=== PATIENT | male | born 1960 | race Caucasian/White ===

== ENCOUNTER 2017-01-31 13:03 | Observation (INO) ==
[2017-01-31] MEDS ORDERED: MORPHINE SULFATE 4 MG/1 ML IVP ONE ×2 (13:14→16:18)
[2017-01-31] MEDS ORDERED: KETOROLAC 15 MG/1 ML VIAL IVP ONE (13:14)
[2017-01-31] MEDS ORDERED: ONDANSETRON 4 MG/2 ML VIAL IVP ONE (13:14)
[2017-01-31] MEDS ORDERED: NORMAL SALINE 10 ML SYRINGE FLUSH IVP PRN (13:14)
[2017-01-31] MEDS ORDERED: Sodium Chloride 0.9% 1,000 ML PRIMARY IV ONE (13:14)
[2017-01-31] MEDS ORDERED: LORazepam 2 MG/1 ML VIAL IVP ONE (13:16)
--- NOTE | 2017-01-31 13:21 | PDOC ---
Back Pain / Injury HPI - General Chief Complaint: Neck / Back Complaint Stated Complaint: back pain Date Seen by Provider: 01/31/17 Time Seen by Provider: 13:10 Source: Patient, Spouse, EMS Exam Limitations: POSITIVE: No limitations Nurse's Notes Reviewed & Considered: Yes EMS Report Reviewed & Considered: Verbal - History of Present Illness Initial Comments: The patient is a 56-year-old male who is brought to the emergency department by ambulance with severe low back pain radiating down his left leg. He has been having issues with sciatic back pain with radiation down his left leg for a while now. He actually had an MRI of his lower back last week which she has not received the results of. Today he was using a small jackhammer when he had onset of more severe pain to the point where he cannot move. EMS was subsequently called and transported him here to the emergency room. He states the pain is in his lower back and radiates primarily down his left leg. He had taken some Aleve earlier today. He denies any allergies to any medications. He also does have a history of MS. - Patient Home Medications Home Medications: Home Medications Teriflunomide [Aubagio] 14 mg PO DAILY tab 07/04/15 Baclofen 10 mg PO BID #60 tab 09/11/16 Oxybutynin Chloride 5 mg PO TID #90 tab 09/11/16 Diltiazem HCl [Diltiazem 24hr Er] 120 mg PO QD #30 cap 10/03/16 Tamsulosin HCl 1 cap PO DAILY #30 cap 10/03/16 Cyclobenzaprine HCl [Flexeril] 10 mg PO TID PRN #20 tab 01/31/17 Oxycodone HCl/Acetaminophen [Percocet 7.5-325 Mg Tablet] 1 ea PO Q6H PRN #20 tab 01/31/17 - Patient Allergies Allergies/Adverse Reactions: Allergies 3 Allergy/AdvReac Type Severity Reaction Status Date / Time POLYMIXIN Allergy Mild SWELLING Uncoded 01/31/17 13:12 Past Medical History - heen HEENT History: Denies History Cardiovascular History: Hypertension, Arrhythmia Additional Cardiovasular History: TACHYCARDIA, HAD STRESS TEST DONE 04/13/14 Respiratory History: Denies History Gastrointestinal History: Denies History Additional Gastrointestinal History: REPAIRED HERNIA/ NOT HIATAL Genitourinary History: Denies History Additional Genitourinary History: PROSTATES ISSUES Endocrine History: Denies History Musculoskeletal History: Other (please comment) Prosthesis or Implant: No Additional Musculoskeletal History: MS Neurological History: Multiple Sclerosis Additional Neurological History: FELL ON 09/11/14 AT WORK, HAS RETROGRADE AMNESIA. CASE REVIEWED BY [facility] HEADACHES- SEEING DR. GARRISON Blood Disorders: Denies History Psychiatric History: Denies History History of Sexually Transmitted Diseases: No Cancer History: Denies History History of MDRO: No History of Other Communicable Diseases: No Alcohol Use: Rarely In the Past 12 Months, Have Used or Abuse Any Substance: None Previous Surgical History: Yes Type / Date of Surgery: HERNIA REPAIR, TONSILLECTOMY/ RIGHT KNEE SCOPE Anesthesia Reactions: No Malignant Hyperthermia: No Significant Family History: Cancer, Other (please comment) Additional Family History: PARKINSONS Past Medical History Reviewed: Reviewed - No Changes ROS - Limitations ROS Limitations: No Limitations Constitution: DENIES: Chills, Fever Cardiovascular: REPORTS: Denies Cardiac Symptoms Respiratory: REPORTS: Denies Resp Symptoms Neurological: DENIES: Headache Gastrointestinal: DENIES: Abdominal Pain Back Physical Assessment - General Appearance General Appearance: REPORTS: Other (The patient is lying on his right side and appears to be having significant pain. He is awake and answers questions appropriately otherwise.) - HEENT HEENT: POSITIVE: Head Inspection Nml - Neck Neck: POSITIVE: Painless ROM, Trachea Midline - Respiratory / CVS Respiratory / CVS: POSITIVE: Breath Sounds Normal, No Respiratory Distress, Heart Sounds Normal, Regular Rate/Rhythm - Abdomen Abdomen: Soft: (All Quadrants), Normal Bowel Sounds: (All Quadrants), No Distention: (All Quadrants) - Back Back: REPORTS: Vertebral Pt. Tenderness (Or lumbar tenderness) - Skin Skin: REPORTS: Intact, No Rash - Extremities Extremity Assessment: No Edema: (ALL) Peripheral Pulses: Dorsalis-pedis (R): 2+, Dorsalis-pedis (L): 2+ Back Progress - Results Reviewed by me Xrays/CTs/US Reviewed: Yes Discussed with Radiologist: Yes Radiology Findings: CT scan of the lumbar spine reveals degenerative changes with spondylolisthesis at the L4-5 level, disc space narrowing is significant at the L5-S1 level, multiple levels of bulging discs per radiologist, no acute fracture CBC and BMP: 01/31/17 13:39 01/31/17 13:39 - Patient's Progress MDM / ED Course: The patient was having significant pain on arrival. An IV had been established per EMS and the patient did receive morphine 4 mg IV, Zofran 4 mg IV and Ativan 1 mg IV. His pain improved initially while the patient was lying in bed. Lab work is all essentially unremarkable and urinalysis is normal. CT scan of lumbar spine reveal significant degenerative changes with bulging discs, as one L5 disc space narrowing and spondylolisthesis with likely nerve impingement per radiologist. The patient's symptoms are consistent with worsening lumbar radiculopathy. He did have an MRI in [place] just last week and is awaiting results. Initially the plan was for discharge home. However is a patient was attempting to get dressed and sit in a chair was apparent that he was going to be unable to do this and his pain returned. He did not feel that he could function properly at home given this level of pain. Decision was made to admit for further pain control. Dr. Ramirez has agreed to accept the patient for further treatment. - Consult Counseled: POSITIVE: Patient, Family, RE: Lab Results, RE: Radiology Results, RE : DX, RE: Need for F/U Patient Care Time - Estimated PCT Patient Care Time (In Minutes): 45 Vital Signs - Recent Vital Signs Vital Signs: Vital Signs (Last 8 hours) Temp Pulse Resp BP Pulse Ox 01/31/17 14:40 97.7 F 87 14 144/92 98 01/31/17 13:14 98 F 68 18 142/83 95 - VS Reviewed Vital Signs Reviewed: Yes Discharge Clinical Impression: Lumbar radiculopathy, Degenerative disc disease Discharge Disposition: Admit to Observation Condition: Fair
[2017-01-31 13:42] LABS: BASOPHILS # (AUTO) 0.29 10*3/UL; BASOPHILS % (AUTO) 3.6 % (0-1); EOSINOPHILS # (AUTO) 0.41 10*3/UL; EOSINOPHILS % (AUTO) 5.1 % (0-8); Hematocrit [HCT] 43.4 % (42.0-52.0); Hemoglobin [HGB] 15.4 g/dL (14.0-18.0); LYMPHOCYTES # (AUTO) 2.06 10*3/uL; MEAN CORPUSCULAR HEMOGLOBIN 29.3 PG (27-31); MEAN CORPUSCULAR HGB CONC 35.5 g/dL (33-37); MEAN CORPUSCULAR VOLUME 82.7 FL (80-90); MEAN PLATELET VOLUME 9.8 FL (7.4-12.2); MONOCYTES # (AUTO) 0.89 10*3/UL (0.3-0.8); MONOCYTES % (AUTO) 11.1 % (5-15); NEUTROPHILS # (AUTO) 4.33 10*3/UL; NEUTROPHILS % (AUTO) 54.3 % (50-80); RED BLOOD COUNT 5.25 10^6/uL (4.70-6.10)
[2017-01-31 13:51] LABS: PLATELET MORPHOLOGY COMMENT NORMAL MORPHOLOGY (NORM); RBC MORPHOLOGY COMMENT NORMAL MORPHOLOGY (NORM); WBC MORPHOLOGY COMMENT NORMAL MORPHOLOGY (NORM)
[2017-01-31 13:59] LABS: BLOOD UREA NITROGEN 16 mg/dL (7-22); SERUM ALBUMIN 4.2 g/dL (3.5-4.8)
[2017-01-31 14:12] LABS: BILIRUBIN,URINE NEGATIVE (NEG); CLARITY,URINE CLEAR (CLEAR); COLOR,URINE YELLOW (Y); GLUCOSE, URINE (UA) NEGATIVE (NEG); NITRATE,URINE NEGATIVE (NEG); OCCULT BLOOD,URINE NEGATIVE (NEG); PH,URINE 7.5 (5.0-8.5); PROTEIN,URINE NEGATIVE (NEG); URINE SAMPLE TYPE CLEAN CATCH URINE; UROBILINOGEN,URINE 0.2 EU/dL (0.2)
--- NOTE | 2017-01-31 14:39 | DI ---
CLINICAL HISTORY: Back and left leg pain after using a jackhammer. PREVIOUS EXAM: None available. FINDINGS/TECHNIQUE: Multiple helically acquired CT images are obtained through the lumbar spine witho ut contrast, and demonstrate grade 1 anterolisthesis of L4 on L5. There is broad-based disc bulges at L2/3, L3/4 and L4/5. There is mild facet hypertrophy noted. There is moderate to severe There is near-complete loss of intervertebral disc height at L5/S1. Bilateral neural foraminal narrow ing at L4/5 and L5/S1. IMPRESSION: 1. Degenerative changes throughout the lumbar spine. Recommend followup imaging with MRI for further evaluation. There is significant neuroforaminal narrowing of the lower lumbar spine.
[2017-01-31] MEDS ORDERED: oxyCODONE-ACETAMINOPHEN 5-325 TAB PO ONE (15:37)
[2017-01-31] MEDS: NORMAL SALINE 10 ML SYRINGE FLUSH IVP PRN ×3 (16:20→17:24)
[2017-01-31] MEDS ORDERED: HYDROmorphone 2 MG/1 ML IVP PRN ×2 (16:37→17:09)
[2017-01-31] MEDS ORDERED: ONDANSETRON 4 MG/2 ML VIAL IVP PRN (16:37)
[2017-01-31] MEDS ORDERED: oxyCODONE-ACETAMINOPHEN 5-325 TAB PO PRN (16:37)
[2017-01-31] MEDS ORDERED: LIDOCAINE W/ SODIUM BICARB 0.5 ML SYR SUBD PRN (16:37)
[2017-01-31] MEDS ORDERED: ACETAMINOPHEN 325 MG TABLET PO PRN (16:37)
[2017-01-31] MEDS ORDERED: KETOROLAC 15 MG/1 ML VIAL IVP PRN (16:37)
[2017-01-31] MEDS ORDERED: CALCIUM CARBONATE 500 MG (TUMS) CHEWABLE TABLET PO PRN (16:37)
[2017-01-31] MEDS ORDERED: DIAZEPAM 5 MG TABLET PO PRN (17:10)
[2017-01-31] MEDS: BACLOFEN 20 MG TABLET PO SCH (17:24)
--- NOTE | 2017-01-31 18:38 | PDOC ---
HPI - History of Present Illness Date and Time of Service: 01/31/2017, 1835 Chief Complaint: Back pain History of Present Illness: This very pleasant 56-year-old male who suffers from hypertension and multiple sclerosis and some bladder dysfunction from the multiple sclerosis presumably. He comes in accompanied by his this early evening with complaints of back pain. The pain is been radiating down the left leg and is been present for at least a month if not a little longer. The pain really got bad after doing some work in which she was climbing on a ladder. He states that makes his pain much worse. He gets sharp pain down the left leg. He denies any fevers, stool incontinence, they stated it was difficult to hold his urine back today. He states that significantly improved and completely resolved. His states that he has some mild foot drop from his multiple sclerosis. That has not changed. He saw chiropractor, but adjustments really did not seem to help and ease been seeing Dr. Torres here in town who ordered an MRI last week. The MRI results are not back yet but a CT scan done in the emergency room shows disc bulging and severe neural foraminal narrowing in the lower lumbar spine. We are requesting the MRI scan report to review further. He has not seen a back surgeon at this point. Patient has had several pain medications and anxiolytics or muscle relaxants including Valium, Toradol, Dilaudid, and I will also place him on a Medrol Dosepak. The patient states that his pain is much better, but still persistent. He has been mildly hypoxic with these medications and is required oxygen. 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 That seemed to aggravate his pain as well. Past Medical History Medical History: 1. Hypertension. 2. Multiple sclerosis. 3. 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 Rotator cuff repair. 2. Biceps tendon repair. 3. Tonsillectomy. 4. Pertinent Family History: Significant for Parkinson's in his mother who is . Father has COPD and is alive. Past Social History: Does not smoke or drink. . Has 3 healthy children although his middle daughter apparently has mild multiple sclerosis. 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 Tobacco Use: Never Smoker In the Past 12 Months, Have Used or Abuse Any of the Following Substance: None Alcohol Use: None Medication / Allergies Home Medications: Home Medications Medication Instructions Recorded Confirmed Type Teriflunomide [Aubagio] 14 mg PO DAILY tab 07/04/15 01/31/17 History Baclofen 10 mg PO BID #60 tab 09/11/16 01/31/17 Rx Oxybutynin Chloride 5 mg PO TID #90 tab 09/11/16 01/31/17 Rx Diltiazem HCl [Diltiazem 24hr Er] 120 mg PO QD #30 cap 10/03/16 01/31/17 Rx Tamsulosin HCl 1 cap PO DAILY #30 cap 10/03/16 01/31/17 Rx Cyclobenzaprine HCl [Flexeril] 10 mg PO TID PRN #20 tab 01/31/17 Rx Oxycodone HCl/Acetaminophen 1 ea PO Q6H PRN #20 tab 01/31/17 Rx [Percocet 7.5-325 Mg Tablet] Allergies/Adverse Reactions: Allergies 3 Allergy/AdvReac Type Severity Reaction Status Date / Time POLYMIXIN Allergy Mild SWELLING Uncoded 01/31/17 13:12 Review of Systems - Review of Systems All Systems: Reviewed & No Additional Complaints Except as Stated (I did a 12 point review systems and it is negative other than that discussed in history present illness and that noted below.) - Cardiovascular Cardiovascular: REPORTS: Other (History of tachycardia but resolved) Exam - Vitals Vital Signs: Vital Signs Pulse Rate [Pulse Oximeter] 87 Respiratory Rate 14 Oxygen Flow Rate 2 Oxygen Delivery Method Nasal Cannula Height 5 ft 9 in Weight 180 lb Vital Signs - Last Taken Temperature 97.7 F 01/31/17 14:40 Pulse Rate 87 01/31/17 16:42 Respiratory Rate 14 01/31/17 16:42 Blood Pressure 144/92 01/31/17 14:40 Pulse Ox 98 01/31/17 14:40 - General General Appearance: No Acute Distress, Cooperative - Head Head Exam: Normal Inspection, Normocephalic, Atraumatic - Eye Eye Exam: POSITIVE: No Scleral Icterus - ENT ENT Exam: POSITIVE: Mucous Membranes Moist - Neck Neck Exam: Normal Inspection, No Tenderness, Thyromegaly - Respiratory Respiratory Exam: POSITIVE: Clear to Auscultation - Bilaterally, Breathing Non Labored, Normal to Percussion and Palpation - Cardiovascular Cardiovascular Exam: POSITIVE: RRR, No Murmur, No Clicks, No Gallops, No Rubs, No JVD - GI/Abdominal GI/Abdominal Exam: POSITIVE: Normal Bowel Sounds, Non Tender, Non Distended, Soft - Rectal Rectal Exam: POSITIVE: Deferred - External Exam: POSITIVE: Deferred Exam: POSITIVE: Deferred - Extremities Extremities Exam: POSITIVE: No Clubbing Present, No Edema Present, No Cyanosis Present - Back Back Exam: POSITIVE: Normal Inspection, No CVA Tenderness, Paraspinal Tenderness (In the lower lumbar spine.), Vertebral Tenderness (In the lower lumbar spine.) - Neurological Neurological Exam: POSITIVE: Alert, Oriented x 3, No Facial Droop, Speech Intact / Clear, Moves All Extremities Equally Additional Neurological Exam Details: Achilles reflexes and knee reflexes in the lower extremities were equal bilaterally no hyperreflexia noted - Psychiatric Psychiatric Exam: POSITIVE: Normal Affect, Normal Mood Results - Labs CBC and BMP: 01/31/17 13:39 01/31/17 13:39 Additional Lab Results: Laboratory Results 01/31/17 01/31/17 01/31/17 Range/Units 13:22 13:39 13:39 WBC 7.99 (4.8-10.8) 10^3/uL RBC 5.25 (4.70-6.10) 10^6/uL Hgb 15.4 (14.0-18.0) g/dL Hct 43.4 (42.0-52.0) % MCV 82.7 (80-90) FL MCH 29.3 (27-31) PG MCHC 35.5 (33-37) g/dL RDW Std Deviation 40.9 (39-50) fL RDW Coeff of Anju 13.7 (11.5-14.5) % Plt Count 275 (140-350) 10*3/uL MPV 9.8 (7.4-12.2) FL Immature Gran % (Auto) 0.1 (0-5) % Neut % (Auto) 54.3 (50-80) % Lymph % (Auto) 25.8 (10-50) % [place] % (Auto) 11.1 (5-15) % Eos % (Auto) 5.1 (0-8) % Baso % (Auto) 3.6 H (0-1) % Immature Gran # (Auto) 0.01 10*3/UL Neut # (Auto) 4.33 10*3/UL Lymph # (Auto) 2.06 10*3/uL [place] # (Auto) 0.89 H (0.3-0.8) 10*3/UL Eos # (Auto) 0.41 10*3/UL Baso # (Auto) 0.29 10*3/UL WBC Morphology Comment Normal morphology (NORM) Plt Morphology Comment Normal morphology (NORM) RBC Morph Comment Normal morphology (NORM) Sodium 138 (135-145) meq/L Potassium 3.4 L (3.8-5.2) meq/L Chloride 102 (98-112) meq/L Carbon Dioxide 23 (23-33) meq/L Anion Gap 13 (5-20) BUN 16 (7-22) mg/dL Creatinine 1.0 (0.70-1.50) mg/dL Estimated GFR > 60 (>60 ml/min/1.73m(2)) BUN/Creatinine Ratio 16.00 (6-20) Glucose 142 H (78-110) mg/dL Calculated Osmolality 288.0 (267-292) mOsm/kg Calcium 9.7 (8.7-10.7) mg/dL Total Bilirubin 0.8 (0.3-1.2) mg/dL AST 29 (21-57) IU/L ALT 37 (21-72) IU/L Alkaline Phosphatase 49 (38-126) IU/L C-Reactive Protein < 0.5 (0.0-0.9) mg/dL Total Protein 6.9 (6.1-8.0) g/dL Albumin 4.2 (3.5-4.8) g/dL Globulin 2.7 (2.50-4.10) g/dL Albumin/Globulin Ratio 1.50 (1.3-2.0) mg/g Ur Collection Type Clean catch urine Urine Color Yellow (Y) Urine Clarity Clear (CLEAR) Urine pH 7.5 (5.0-8.5) Ur Specific [place] 1.015 (1.005-1.030) Urine Protein Negative (NEG) mg/dl Urine Glucose (UA) Negative (NEG) mg/dL Urine Ketones Negative (NEG) Urine Occult Blood Negative (NEG) Urine Nitrate Negative (NEG) Urine Bilirubin Negative (NEG) Urine Urobilinogen 0.2 (0.2) EU/dL Ur Leukocyte Esterase Negative (NEG) Ur Culture Indicated? Culture not set - Imaging Status: Report Reviewed by Me (I reviewed the CT scan report and it showed some disc bulging and severe neural foraminal narrowing in the lower lumbar spine.) Assessment and Plan - Patient Problems (1) Lumbar radiculopathy Current Visit: Yes Status: Acute Code(s): M54.16 - Radiculopathy, lumbar region (2) Multiple sclerosis Current Visit: Yes Status: Acute Code(s): G35 - Multiple sclerosis (3) Hypertension Current Visit: Yes Status: Acute Code(s): I10 - Essential (primary) hypertension Qualifiers: Hypertension type: essential hypertension Qualified Code(s): I10 - Essential (primary) hypertension (4) Degenerative disc disease Current Visit: Yes Status: Acute Qualifiers: Spinal region: lumbar Qualified Code(s): M51.36 - Other intervertebral disc degeneration, lumbar region - Assessment / Plan Additional Assessment/Plan Details: Admit the patient for observation. IV or parenteral pain control, antiemetics as necessary, steroids, muscle relaxants and anxiolytics that service muscle relaxants as well, and try to get MRI report from [place] outpatient radiology. Ultimately, I think if we can get this pain paroxysmal, down, we should get the patient to a back surgeon either neurosurgeon or orthopedics, for further evaluation and management. If any bowel or bladder dysfunction occurs while here, I will look at transferring the patient acutely to a center with a neurosurgeon. We will continue him home medications for multiple sclerosis and hypertension. Also for bladder dysfunction. I discussed the above plan with the patient and his and they agreed.
[2017-01-31] MEDS ORDERED: POTASSIUM CHLORIDE 20 MEQ TAB PO ONE (18:44)
[2017-01-31] MEDS: Sodium Chloride 0.9% 1,000 ML IV SCH (20:00)
[2017-01-31] MEDS: oxyCODONE-ACETAMINOPHEN 5-325 TAB PO PRN (20:08)
[2017-01-31] MEDS: OXYBUTYNIN 5 MG PO SCH (20:52)
[2017-01-31] MEDS ORDERED: BACLOFEN 20 MG TABLET PO SCH (21:00)
[2017-02-01 05:08] LABS: BLOOD UREA NITROGEN 16 mg/dL (7-22); BUN/CREATININE RATIO 17.77 (6-20)
[2017-02-01] MEDS: oxyCODONE-ACETAMINOPHEN 5-325 TAB PO PRN ×2 (05:20→09:20)
[2017-02-01] MEDS: OXYBUTYNIN 5 MG PO SCH ×2 (08:30→14:41)
[2017-02-01] MEDS: BACLOFEN 20 MG TABLET PO SCH (08:31)
[2017-02-01] MEDS: Sodium Chloride 0.9% 1,000 ML IV SCH (08:42)
[2017-02-01 09:00] VITALS: RESP 20
[2017-02-01] MEDS ORDERED: METHYLPREDNISOLONE 4 MG TAB DOSE PACK PO SCH (09:00)
[2017-02-01] MEDS ORDERED: TAMSULOSIN 0.4 MG CAPSULE PO SCH (09:00)
[2017-02-01] MEDS ORDERED: DILTIAZEM HCL CD 120 MG CAP PO SCH ×2 (09:00→19:00)
[2017-02-01] MEDS ORDERED: METHYLPREDNISOLONE 4 MG TAB DOSE PACK PO ONE (09:13)
[2017-02-01] MEDS ORDERED: Naproxen Tab 500 MG TAB PO ONE (12:14)
[2017-02-01] MEDS ORDERED: Naproxen Tab 500 MG TAB PO SCH (17:00)
[2017-02-01 17:12] VITALS: BP 145/77; TEMP 97.4
--- NOTE | 2017-02-01 18:04 | DCSUMMARY ---
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 He's had some back pain is been persistent and worsening over the last month, associated with sharp, radiating pain down his left leg. It is consistent with sciatica and he had a CT scan here that showed disc bulging and neural foraminal narrowing in the lower lumbar spine. The patient was admitted, managed under observation, given IV pain medications including Dilaudid and Toradol, and we were able to transition him over to by mouth medications including opiates, Naprosyn, and Medrol Dosepak. Valium was also used as a muscle relaxant. Today, the patient is significantly better, states his pain is under much better control, was able to walk around the [place] without difficulties without assistance, no chest pain, no shortness breath, no nausea or vomiting. He would like to go home. Assessment and Plan: 1. As per discharge assessments noted 2. Disposition: Patient is discharged home. 3. Condition on discharge, stable and improved. 4. Diet: regular diet 5. Activities: resume normal activities, but do not lift anything greater than 10 pounds, please avoid extraneous activity. Walking is okay. 6. Follow-Up: 1. See primary care provider in one week 2. See orthopedics, Dr. Torres, this week as scheduled 7. Medications at the Time of Discharge: Home Medications Medication Instructions Recorded Confirmed Type Teriflunomide [Aubagio] 14 mg PO DAILY tab 07/04/15 01/31/17 History Baclofen 10 mg PO BID #60 tab 09/11/16 01/31/17 Rx Oxybutynin Chloride 5 mg PO TID #90 tab 09/11/16 01/31/17 Rx Diltiazem HCl [Diltiazem 24Hr ER] 120 mg PO QD #30 cap 10/03/16 01/31/17 Rx Tamsulosin HCl 1 cap PO DAILY #30 cap 10/03/16 01/31/17 Rx Naproxen [Naprosyn] 500 mg PO BID MEALS #30 tab 02/01/17 Rx methylPREDNISolone Dose Pack 24 mg PO DAILY sara 02/01/17 Rx [Medrol Dose Pack] oxyCODONE/APAP 5/325 Tab 1 - 2 tab PO Q4H PRN #30 tab 02/01/17 Rx [Percocet 5/325 Tab] 8. Time, care, counseling and coordination of care for this discharge is greater than 30 minutes. Exam - Vitals Vital Signs: Vital Signs Vital Signs (24 hrs) Temp Pulse Resp BP Pulse Ox 02/01/17 17:00 97.4 F 96 20 145/77 94 02/01/17 13:00 98.1 F 85 20 138/91 94 02/01/17 08:59 98.2 F 84 20 154/93 96 02/01/17 04:29 98 F 89 16 151/91 95 02/01/17 01:00 97.9 F 94 16 152/91 97 01/31/17 20:36 98.4 F 97 16 134/92 96 Height 5 ft 9 in Weight 175 lb 6.4 oz - General General Appearance: No Acute Distress, Cooperative - Eye Eye Exam: POSITIVE: No Scleral Icterus - ENT ENT Exam: POSITIVE: Mucous Membranes Moist - Respiratory Respiratory Exam: POSITIVE: Clear to Auscultation - Bilaterally, Breathing Non Labored - Cardiovascular Cardiovascular Exam: POSITIVE: RRR, No Murmur, No Clicks, No Gallops, No Rubs, No JVD - GI/Abdominal GI/Abdominal Exam: POSITIVE: Normal Bowel Sounds, Non Tender, Non Distended, Soft - Extremities Extremities Exam: POSITIVE: No Clubbing Present, No Edema Present, No Cyanosis Present - Neurological Neurological Exam: POSITIVE: Alert, Oriented x 3, Normal Gait, No Facial Droop, Speech Intact / Clear, Moves All Extremities Equally Data Perinent Studies: Laboratory Results 01/31/17 01/31/17 01/31/17 Range/Units 13:22 13:39 13:39 WBC 7.99 (4.8-10.8) 10^3/uL RBC 5.25 (4.70-6.10) 10^6/uL Hgb 15.4 (14.0-18.0) g/dL Hct 43.4 (42.0-52.0) % MCV 82.7 (80-90) FL MCH 29.3 (27-31) PG MCHC 35.5 (33-37) g/dL RDW Std Deviation 40.9 (39-50) fL RDW Coeff of Anju 13.7 (11.5-14.5) % Plt Count 275 (140-350) 10*3/uL MPV 9.8 (7.4-12.2) FL Immature Gran % (Auto) 0.1 (0-5) % Neut % (Auto) 54.3 (50-80) % Lymph % (Auto) 25.8 (10-50) % [place] % (Auto) 11.1 (5-15) % Eos % (Auto) 5.1 (0-8) % Baso % (Auto) 3.6 H (0-1) % Immature Gran # (Auto) 0.01 10*3/UL Neut # (Auto) 4.33 10*3/UL Lymph # (Auto) 2.06 10*3/uL [place] # (Auto) 0.89 H (0.3-0.8) 10*3/UL Eos # (Auto) 0.41 10*3/UL Baso # (Auto) 0.29 10*3/UL WBC Morphology Comment Normal morphology (NORM) Plt Morphology Comment Normal morphology (NORM) RBC Morph Comment Normal morphology (NORM) Sodium 138 (135-145) meq/L Potassium 3.4 L (3.8-5.2) meq/L Chloride 102 (98-112) meq/L Carbon Dioxide 23 (23-33) meq/L Anion Gap 13 (5-20) BUN 16 (7-22) mg/dL Creatinine 1.0 (0.70-1.50) mg/dL Estimated GFR > 60 (>60 ml/min/1.73m(2)) BUN/Creatinine Ratio 16.00 (6-20) Glucose 142 H (78-110) mg/dL Calculated Osmolality 288.0 (267-292) mOsm/kg Calcium 9.7 (8.7-10.7) mg/dL Total Bilirubin 0.8 (0.3-1.2) mg/dL AST 29 (21-57) IU/L ALT 37 (21-72) IU/L Alkaline Phosphatase 49 (38-126) IU/L C-Reactive Protein < 0.5 (0.0-0.9) mg/dL Total Protein 6.9 (6.1-8.0) g/dL Albumin 4.2 (3.5-4.8) g/dL Globulin 2.7 (2.50-4.10) g/dL Albumin/Globulin Ratio 1.50 (1.3-2.0) mg/g Ur Collection Type Clean catch urine Urine Color Yellow (Y) Urine Clarity Clear (CLEAR) Urine pH 7.5 (5.0-8.5) Ur Specific [place] 1.015 (1.005-1.030) Urine Protein Negative (NEG) mg/dl Urine Glucose (UA) Negative (NEG) mg/dL Urine Ketones Negative (NEG) Urine Occult Blood Negative (NEG) Urine Nitrate Negative (NEG) Urine Bilirubin Negative (NEG) Urine Urobilinogen 0.2 (0.2) EU/dL Ur Leukocyte Esterase Negative (NEG) Ur Culture Indicated? Culture not set 02/01/17 Range/Units 04:05 WBC (4.8-10.8) 10^3/uL RBC (4.70-6.10) 10^6/uL Hgb (14.0-18.0) g/dL Hct (42.0-52.0) % MCV (80-90) FL MCH (27-31) PG MCHC (33-37) g/dL RDW Std Deviation (39-50) fL RDW Coeff of Anju (11.5-14.5) % Plt Count (140-350) 10*3/uL MPV (7.4-12.2) FL Immature Gran % (Auto) (0-5) % Neut % (Auto) (50-80) % Lymph % (Auto) (10-50) % [place] % (Auto) (5-15) % Eos % (Auto) (0-8) % Baso % (Auto) (0-1) % Immature Gran # (Auto) 10*3/UL Neut # (Auto) 10*3/UL Lymph # (Auto) 10*3/uL [place] # (Auto) (0.3-0.8) 10*3/UL Eos # (Auto) 10*3/UL Baso # (Auto) 10*3/UL WBC Morphology Comment (NORM) Plt Morphology Comment (NORM) RBC Morph Comment (NORM) Sodium 136 (135-145) meq/L Potassium 3.9 (3.8-5.2) meq/L Chloride 103 (98-112) meq/L Carbon Dioxide 25 (23-33) meq/L Anion Gap 8 (5-20) BUN 16 (7-22) mg/dL Creatinine 0.9 (0.70-1.50) mg/dL Estimated GFR > 60 (>60 ml/min/1.73m(2)) BUN/Creatinine Ratio 17.77 (6-20) Glucose 118 H (78-110) mg/dL Calculated Osmolality 283.0 (267-292) mOsm/kg Calcium 8.7 (8.7-10.7) mg/dL Total Bilirubin (0.3-1.2) mg/dL AST (21-57) IU/L ALT (21-72) IU/L Alkaline Phosphatase (38-126) IU/L C-Reactive Protein (0.0-0.9) mg/dL Total Protein (6.1-8.0) g/dL Albumin (3.5-4.8) g/dL Globulin (2.50-4.10) g/dL Albumin/Globulin Ratio (1.3-2.0) mg/g Ur Collection Type Urine Color (Y) Urine Clarity (CLEAR) Urine pH (5.0-8.5) Ur Specific [place] (1.005-1.030) Urine Protein (NEG) mg/dl Urine Glucose (UA) (NEG) mg/dL Urine Ketones (NEG) Urine Occult Blood (NEG) Urine Nitrate (NEG) Urine Bilirubin (NEG) Urine Urobilinogen (0.2) EU/dL Ur Leukocyte Esterase (NEG) Ur Culture Indicated? radiologic data: [address] 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 PREVIOUS EXAM: None available. FINDINGS/TECHNIQUE: Multiple helically acquired CT images are obtained through the lumbar spine without contrast, and demonstrate grade 1 anterolisthesis of L4 on L5. There is broad-based disc bulges at L2/3, L3/4 and L4/5. There is mild facet hypertrophy noted. There is moderate to severe There is near-complete loss of intervertebral disc height at L5/S1. Bilateral neural foraminal narrowing at L4/5 and L5/S1. IMPRESSION: 1. Degenerative changes throughout the lumbar spine. Recommend followup imaging with MRI for further evaluation. There is significant neuroforaminal narrowing of the lower lumbar spine. Dictated By: 01/31/17 0000 CARMELA BEARD MD. Signed By: 01/31/17 2238 CARMELA BEARD MD. Patient Problems - Patient Problem List (1) Lumbar radiculopathy Current Visit: Yes Status: Acute Code(s): M54.16 - Radiculopathy, lumbar region Category: Medical (2) Multiple sclerosis Current Visit: Yes Status: Acute Code(s): G35 - Multiple sclerosis Category: Medical (3) Hypertension Current Visit: Yes Status: Acute Code(s): I10 - Essential (primary) hypertension Qualifiers: Hypertension type: essential hypertension Qualified Code(s): I10 - Essential (primary) hypertension Category: Medical (4) Degenerative disc disease Current Visit: Yes Status: Acute Qualifiers: Spinal region: lumbar Qualified Code(s): M51.36 - Other intervertebral disc degeneration, lumbar region Category: Medical
--- NOTE | 2017-02-02 12:18 | PTI REPORT ---
Thank you for the referral of Riley Mack. He was seen on 02/01/17 for an inpatient evaluation secondary to back pain. SUBJECTIVE: The patient is a 56-year-old male who presented to the ER yesterday with back pain and left lower extremity radicular symptoms. The patient states that he was brought to the ER via ambulance as he was unable to move. The patient reports an on and off history of low back pain with an increase in symptoms over the last month. The patient states that he has been seeing Dr. Martinez and Dr. Torres in regards to his back pain and he did have an MRI last Thursday in [place] but they were unable to get the results per patient's report. The patient states that he has numbness and tingling down his left lower extremity along the anterior thigh and also the back of the leg down to his foot. He states that at times when he gets up it feels like his hip is going to give out so he has been having some difficulties walking and since admittance to the hospital has been using a walker to get to and from the bathroom. 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 The patient reports this morning that his pain is much better under control as compared to yesterday and he is hoping that he can go home later today. The patient does report a history of hypertension and a six year history since diagnosis of MS from which he states he does get some left sided toe drop and drag from. The patient states he also does have a follow up with Dr. Torres tomorrow to go over the results from the MRI that he had done on January 23, 2017. PAST MEDICAL HISTORY: Past medical history can be found in the patient's medical record. OBJECTIVE FINDINGS: General observations: The patient is alert and oriented to setting upon PT arrival. The patient was in bed with head of bed raised and an IV in place. The patient tested positive for increased neural tension on the left lower extremity. Pain: The patient reported little pain at start of treatment. Bed mobility: The patient was able to independently move from a supine to seated edge of bed position. Strength: The patient demonstrated difficulties with lifting his left lower extremity with a straight leg raise and demonstrated 3/5 hip strength on the left and 4/5 left knee and left ankle strength and 5/5 right lower extremity strength. Ambulation: The patient was able to ambulate with use of standard walker and stand by assist x1 for safety. He did demonstrate an antalgic gait with decreased weight-bearing on the left side. The patient was able to ambulate 20 feet to his bathroom and 20 feet back to his bed. ASSESSMENT: The patient has fair rehab potential due to the chronic nature of his back pain with worsening symptoms over the last month. Problem List: Back pain Left lower extremity radicular symptoms Weakness of the left lower extremity Antalgic gait Short-Term Goals: To be met by discharge from inpatient: Patient's low back pain will be no more than 2/10 upon discharge. Patient will be able to perform all transfers and ambulate safely with least restrictive assistive device for at least 150 feet independently. Patient will be able to ascend and descend a flight of stairs with least restrictive assistive device independently. Long-Term Goals: To be met following discharge from inpatient: Patient most likely will be seen by outpatient physical therapy secondary to his low back pain. TREATMENT PLAN: Patient will be seen B.I.D during the week and one time per day over the weekend as an inpatient for pain modulation and functional activities such as ambulating and stairs along with manual therapy to decrease numbness and tingling down the left lower extremity. The patient may also be a candidate for pool therapy if he is still an inpatient tomorrow. INITIAL TREATMENT: Treatment today consisted of the initial evaluation followed by the therapist applying electrodes to the patient's low back with setting of IFC and moist heat on the low back for pain modulation. The patient was left for 20 minutes with heat and electrodes. Following this, manual therapy was performed including manual traction of the bilateral lower extremities and gentle passive range of motion bilaterally with neural glides on the left lower extremity. The patient was issued a standard walker due to his antalgic gait pattern and complaints of his left hip feeling like it is going to give out. The walker was adjusted to patient's correct height. [facility]
== END 2017-02-01 18:30 | disposition home or self-care (01) ==
LOC: ER 13:03 → MED/SURG 13:03
PROVIDERS: ADMIT Family Medicine; ATTEND Family Medicine